=== PATIENT | male | born 1950 | race Caucasian/White ===

== ENCOUNTER 2025-04-11 13:39 | Inpatient (IN) | payer OTHER, MEDICAID ==
[~2025-04-11] VITALS: Ht 165.1 cm; Wt 47.5 kg
--- NOTE | 2025-04-11 13:51 | ECG ---
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
[2025-04-11] MEDS: ALBUTEROL SULF 2.5 MG/0.5ML(0.5%) NEB SOLN NEB ONE (14:11)
[2025-04-11] MEDS: IPRATROPIUM BROM 0.5 MG/2.5ML INH SOL NEB ONE (14:11)
[2025-04-11 14:22] LABS: Hematocrit 34.5 % (41.0-53.0); Hemoglobin 10.8 g/dL (13.5-17.5); Mean Corpuscular Hemoglobin 23.9 pg (28.0-32.0); Mean Corpuscular Volume 76.2 fL (80.0-100.0); Nucleated Red Blood Cells % 0.1 %
[2025-04-11 14:31] LABS: Chloride 99 mmol/L (98-107); Potassium 4.2 mmol/L (3.5-5.1); Sodium 140 mmol/L (136-145)
[2025-04-11 14:32] LABS: Anion Gap 7 (5-15)
[2025-04-11 14:33] LABS: Calcium 8.9 mg/dL (8.7-10.4); Carbon Dioxide 34 mmol/L (20-31)
[2025-04-11 14:37] LABS: Glucose 94 mg/dL (74-106)
[2025-04-11 14:38] LABS: BUN/Creatinine Ratio 29.0 (10.0-20.0)
[2025-04-11 14:44] LABS: Blood Urea Nitrogen 29 mg/dL (9-23)
--- NOTE | 2025-04-11 15:40 | DVH ---
CHEST RADIOGRAPH Indication: sob Technique: Single frontal view of the chest was obtained Comparison: XR CHEST 1 VIEW on DOS: 10/19/24 FINDINGS: Lines and Tubes: None Lungs: Bilateral interstitial and airspace opacities. Pleura: No effusion. No pneumothorax. Cardiomediastinal contours: Unremarkable Bones: No acute osseous abnormality. IMPRESSION: 1. Bilateral interstitial and airspace opacities which may reflect pulmonary congestion or fibrosis.
[2025-04-11 16:00] VITALS: PULSE 82; RESP 16; O2SAT 95
--- NOTE | 2025-04-11 17:03 | ED.PDOC ---
History of Present Illness HPI Comments 74 y/o M presents with c/c of shortness of breath and cough. Patient is a poor historian. Endorses on dyspnea for several 'weeks.' Patient also reports associated nausea, vomiting, diarrhea, fever, and chills. He denies any chest pain, abdominal pain, or further acute symptoms. Chief Complaint: Shortness of Breath Time Seen by MD: 16:50 Reviewed Notes: Nurses Notes, Medications, Allergies Allergies: Coded Allergies: NO KNOWN ALLERGIES (Unverified , 04/11/25) Information Source: Patient Mode of Arrival: Wheelchair Severity: Moderate Timing: Weeks Duration: Since onset Prehospital treatment: None Past Medical History PAST MEDICAL HISTORY: Denies Surgical History: Denies all surgeries Social History Smoker: Non-Smoker Alcohol: Denies ETOH Use Drugs: Denies Drug Use Lives In: Home All Other Systems: Reviewed and Negative (Comprehensive review of systems are negative unless stated in HPI) Physical Exam General Appearance: No Apparent Distress, Normal HEENT: Normal ENT Inspection, Pharynx Normal, TMs Normal Neck: Full Range of Motion, Non-Tender, Normal, Normal Inspection Respiratory: Chest Non-Tender, No Accessory Muscle Use, No Respiratory Distress, Other (nonproductive cough; coarse breathe sounds bilaterally) Cardiovascular: No Edema, No JVD, No Murmur, No Gallop, Normal Peripheral Pulses, Regular Rate/Rhythm Breast Exam: Deferred Gastrointestinal: No Organomegaly, Non Tender, No Pulsatile Mass, Normal Bowel Sounds, Soft Genitalia: Deferred Pelvic: Deferred Rectal: Deferred Extremities: No calf tenderness, Normal capillary refill, Normal inspection, Normal range of motion, Non-tender, No pedal edema Musculoskeletal : Apperance: Normal Neurologic: Alert, veterans services specialist II-XII nml as Tested, No Motor Deficits, Normal Affect, Normal Mood, No Sensory Deficits Cerebellar Function: Normal Reflexes: Normal Skin: Dry, Normal Color, Warm Lymphatic: No Adenopathy Was a procedure done? Was a procedure done?: No EKG EKG : Pulse Rate (adult): 84 [place]: Normal Cardiac Rhythm: NSR Block: None Hypertrophy: None ST: Normal Differential Dx Considerations may include: URI, PNA, PE, VA, among others X-Ray, Labs, Meds, VS Vital Signs Date Time Temp Pulse Resp B/P (MAP) Pulse Ox O2 Delivery O2 Flow Rate FiO2 04/11/25 14:15 18 98 Nasal Cannula* 2 28 04/11/25 13:41 97.5 89 28 106/75 94 97.5 Lab Test 04/11/25 15:09 04/11/25 14:08 Range/Units Troponin I High Sensitivity 4 4 </=54 ng/L White Blood Count 4.9 4.4-10.8 10^3/uL Red Blood Count 4.53 4.5-5.90 10^6/uL Hemoglobin 10.8 L 13.5-17.5 g/dL Hematocrit 34.5 L 41.0-53.0 % Mean Corpuscular Volume 76.2 L 80.0-100.0 fL Mean Corpuscular Hemoglobin 23.9 L 28.0-32.0 pg Mean Corpuscular Hemoglobin Concent 31.4 L 32.0-36.0 g/dL Red Cell Distribution Width 19.6 H 11.8-14.3 % Platelet Count 382 140-450 10^3/uL Mean Platelet Volume 7.5 6.9-10.8 fL Neutrophils (%) (Auto) 60.9 37.0-80.0 % Lymphocytes (%) (Auto) 24.1 10.0-50.0 % Monocytes (%) (Auto) 11.9 0.0-12.0 % Eosinophils (%) (Auto) 2.5 0.0-7.0 % Basophils (%) (Auto) 0.6 0.0-2.0 % Neutrophils # (Auto) 3.0 1.6-8.6 10 ^3/uL Lymphocytes # (Auto) 1.2 0.4-5.4 10 ^3/uL Monocytes # (Auto) 0.6 0-1.3 10 ^3/uL Eosinophils # (Auto) 0.1 0-0.8 10 ^3/uL Basophils # (Auto) 0 0-0.2 10 ^3/uL Nucleated Red Blood Cells 0.1 % Sodium Level 140 136-145 mmol/L Potassium Level 4.2 3.5-5.1 mmol/L Chloride Level 99 98-107 mmol/L Carbon Dioxide Level 34 H 20-31 mmol/L Anion Gap 7 5-15 Blood Urea Nitrogen 29 H 9-23 mg/dL Creatinine 1.00 0.700-1.30 mg/dL Glomerular Filtration Rate Calc 80 >90 mL/min BUN/Creatinine Ratio 29.0 H 10.0-20.0 Serum Glucose 94 74-106 mg/dL Lactic Acid Level 1.4 0.4-2.0 mmol/L Calcium Level 8.9 8.7-10.4 mg/dL B-Type Natriuretic Peptide 71.80 0-100 pg/mL Current Medications Medications (Trade) Dose Ordered Sig/Jerry Route Start Time Stop Time Status Last Admin Albuterol (Ventolin Medneb) 5 mg ONCE ONCE NEB 04/11/25 14:00 04/11/25 14:01 DC 04/11/25 14:11 Ipratropium [place] (Atrovent Medneb) 0.5 mg ONCE ONCE NEB 04/11/25 14:00 04/11/25 14:01 DC 04/11/25 14:11 [place] [id number] Ph: [phone] DIAGNOSTIC IMAGING Diagnostic Imaging Report : [id number] Signed PATIENT: BETTINA SOLER ACCT: [id number] UNIT: [id number] : 1950 LOC: ER ROOM / BED: / AGE / SEX: 74 / M ADM STATUS: REG ER SERVICE 1348 ORDERING PHYSICIAN: MARGO DO MD PROCEDURE(s): CXRP - CHEST PORTABLE REASON: sob ORDER NUMBER(s): [id number], ACCESSION NUMBER(s): [id number] CHEST RADIOGRAPH Indication: sob Technique: Single frontal view of the chest was obtained Comparison: XR CHEST 1 VIEW on DOS: 10/19/24 FINDINGS: Lines and Tubes: None Lungs: Bilateral interstitial and airspace opacities. Pleura: No effusion. No pneumothorax. Cardiomediastinal contours: Unremarkable Bones: No acute osseous abnormality. IMPRESSION: 1. Bilateral interstitial and airspace opacities which may reflect pulmonary congestion or fibrosis. ATED BY: CALOS CHIANG MD DICTATED DATE/TIME: 04/11/251536 SIGNED BY: CALOS CHIANG MD SIGNED DATE/TIME: 04/11/251536 CC: Time of 1ST Reevaluation: 17:20 Reevaluation 1ST: Unchanged Patient Education/Counseling: Diagnosis, Treatment, Other (need for admission ) Family Education/Counseling: No Family Present SEPSIS Sepsis Screen Date sepsis recognized/suspect: Apr 11, 2025 Time Sepsis recognized/suspect: 4 Recent Procedure: No On Antibiotic Therapy: No Respiratory Rate >20: Yes Heart Rate >90: No Temp<36 C (96.8 F) or >38.3 C: No SBP <90 or MAP <65 mmHG: No New Acute Mental Status Change: No Is the patient on CPAP, BIPAP,: No Physician Orders Chest Portable (04/11/25 13:48) Blood Culture (04/11/25 13:48) Troponin-I Hs (04/11/25 16:48) Electrocardigram (04/11/25 14:48) Electrocardigram (04/11/25 16:48) Azithromycin Tablet (Zithromax Tablet) (04/11/25 17:00) Methylprednisolone Sod Succ (Solu Medrol (04/11/25 17:00) Vital Signs Date Time Temp Pulse Resp B/P (MAP) Pulse Ox O2 Delivery O2 Flow Rate FiO2 04/11/25 14:15 18 98 Nasal Cannula* 2 28 04/11/25 13:41 97.5 89 28 106/75 94 97.5 Laboratory Tests Test 04/11/25 14:08 Lactic Acid Level 1.4 mmol/L (0.4-2.0) White Blood Count 4.9 10^3/uL (4.4-10.8) Medications Medications Dose Ordered Sig/Jerry Route Start Time Stop Time Status Last Admin Dose Admin Albuterol 5 mg ONCE ONCE NEB 04/11/25 14:00 04/11/25 14:01 DC 04/11/25 14:11 Ipratropium [place] 0.5 mg ONCE ONCE NEB 04/11/25 14:00 04/11/25 14:01 DC 04/11/25 14:11 Departure 1 Departure Time of Disposition: 17:03 (Patient presented with acute shortness of breath concerning for acute on chronic COPD Exacerbation, Pneumonia, ACS, CHF, Pneumothorax. Less likely PE, Dissection. Data: 1. I ordered and reviewed the result of at least 3 labs including a CBC, BMP, and Troponin. 2. I independently interpreted the following tests: Chest X-ray shows .Risk:This patient has a high risk of morbidity due to further diagnostic testing or treatment and may suffer from respiratory or cardiac etiology . Workup reveals a likely COPD Exacerbation and patient should be admitted for further workup. and possible expert consultation.) Impression: Primary Impression: Acute and chronic respiratory failure Additional Impressions: Shortness of breath Generalized weakness Disposition: ADMITTED INPATIENT Admit to: Tele Condition: Serious Critical Care Note Critical Care Time?: Yes Critical care comment: Acute on chronic respiratory failure Authorized and Performed by: Margo Do MD Total critical care time: Approximately 39 minutes Due to a high probability of clinically significant, life threatening deterioration, the patient required my highest level of preparedness to intervene emergently and I personally spent this critical care time directly and personally managing the patient. This critical care time included obtaining a history; examining the patient; pulse oximetry; ordering and review of studies; arranging urgent treatment with development of a management plan; evaluation of patient's response to treatment; frequent reassessment; and, discussions with other providers. This critical care time was performed to assess and manage the high probability of imminent, life-threatening deterioration that could result in multi-organ failure. It was exclusive of separately billable procedures and treating other patients and teaching time. Please see my other sections and the rest of the note for further information on patient assessment and treatment. Stability Stability form required: No Heart Score Heart Score: Heart Score Response (Comments) Value History Moderate Suspicious 1 EKG Normal 0 Age >65 2 Risk Factors No known risk factors 0 Troponin Normal limit 0 Total 3 I personally scribed for MARGO DO MD ([email or web address]) on 04/11/25 at 17:03. Electronically submitted by Carroll Vicente [email or web address]). MARGO DO MD Apr 11, 2025 17:03
[2025-04-11] MEDS: AZITHROMYCIN 250 MG TAB PO ONE (19:09)
[2025-04-11] MEDS: methylPREDNISolone SOD SUCC 125 MG/2 ML VL IV ONE (19:11)
[2025-04-11 19:46] VITALS: PULSE 72; RESP 14; O2SAT 99
[2025-04-11 20:16] VITALS: O2SAT 97
[2025-04-11] MEDS ORDERED: DOCUSATE SOD 100 MG CAP PO PRN (20:45)
[2025-04-11] MEDS ORDERED: ONDANSETRON HCL 4 MG/2 ML VIAL IV PRN (20:45)
[2025-04-11] MEDS ORDERED: ACETAMINOPHEN 325 MG TAB PO PRN (20:45)
[2025-04-11 20:48] VITALS: BP 103/71; PULSE 72; RESP 14; TEMP 97.9; O2SAT 99
[2025-04-11] MEDS: methylPREDNISolone SOD SUCC 40 MG/ML VL IV SCH (21:34)
[2025-04-11] MEDS: SODIUM CHLOR 0.9% PF (SALINE LOCK) 10ML VIAL/SYR IV SCH (21:34)
[2025-04-11] MEDS: FAMOTIDINE (10MG/ML) 2ML VL IV SCH (21:34)
--- NOTE | 2025-04-11 22:09 | DVHHP2 ---
History of Present Illness Reason for Visit: Acute and chronic respiratory failure History of Present Illness The patient is a 74-year-old male who denies past medical history presented to [facility] ED with complaint of shortness of breaths. Patient reports that he has been experiencing difficulty breathing associated with cough, nausea, vomiting, diarrhea, fever, chills, and dyspnea for several weeks. Patient was seen and evaluated in the ED, laboratory data shows WBC 4.9, hemoglobin 10.8, hematocrit 34.5, platelets 382, sodium 140, potassium 4.2, BUN 29, creatinine 1.00, GFR 80, glucose 94, calcium 8.9, BNP 71.80, troponin 5, lactic acid 1.4, blood pressure 104/70, heart rate 72, temperature 97.9 F, O2 saturation 99% on oxygen. Chest x-ray revealing bilateral interstitial and airspace opacity which may reflect pulmonary congestion or fibrosis. Please see medication orders section in the computer. On my assessment, patient denied chest pain, no dizziness, headache, diaphoresis, no diarrhea, nausea, vomiting, fever, no chills. Patient was admitted for further evaluation and medical management. Past Medical History Denies past medical history Past Surgical History Denies all surgeries Family History Reviewed, noncontributory to the management of this case. Past Social History The patient lives at home, denies smoking, alcohol or illicit drugs abuse. Review of Systems Constitutional: Yes: Weakness; No: Fever, Chills, Sweats, Malaise, Other Eyes: No: Pain, Vision change, Conjunctivae inflammation, Eyelid inflammation, Other, Redness ENT: No: Ear pain, Ear discharge, Nose pain, Nose discharge, Nose congestion, Mouth pain, Mouth swelling, Throat pain, Throat swelling, Other Respiratory: Cough, Shortness of breath; No: Dry, SOB with excertion, Wheezing, Hemoptysis, Pleuritic Pain, Sputum, Wheezing, Other Cardiovascular: No: Chest Pain, Palpitations, Orthopnea, Paroxysmal Noc. Dyspnea, Edema, Lt Headedness, Other Gastrointestinal: Nausea, Vomiting; No: Abdominal Pain, Diarrhea, Constipation, Melena, Hematochezia, Other Genitourinary: No Dysuria, No Frequency, No Incontinence, No Hematuria, No Retention, No Other Musculoskeletal: No: other, neck pain, shoulder pain, arm pain, back pain, hand pain, leg pain, foot pain Skin: No: Rash, Lesions, Jaundice, Bruising, Other Neurological: No: Weakness, Numbness, Incoordination, Change in speech, Confusion, Seizures, Other Allergies: Coded Allergies: NO KNOWN ALLERGIES (Unverified , 04/11/25) Medications Current Medications Medications Dose Ordered Sig/Jerry Route Start Time Stop Time Status Last Admin Dose Admin Albuterol 2.5 mg Q4HPRN PRN NEB 04/11/25 20:45 Ipratropium [place] 0.5 mg Q4HPRN PRN NEB 04/11/25 20:45 Famotidine 20 mg Q12HR IV 04/11/25 22:00 04/11/25 21:34 20 MG Methylprednisolone Sodium Succinate 20 mg BID IV 04/11/25 22:00 04/11/25 21:34 20 MG Sodium Chloride 10 ml Q8HR IV 04/11/25 22:00 04/11/25 21:34 10 ML Acetaminophen/ Hydrocodone Bitart 1 tab Q4HP PRN PO 04/11/25 20:45 Ondansetron HCl 4 mg Q4HP PRN IV 04/11/25 20:45 Docusate Sodium 100 mg BIDPRN PRN PO 04/11/25 20:45 Acetaminophen 650 mg Q6HP PRN PO 04/11/25 20:45 Exam Vital Signs Vital Signs Date Time Temp Pulse Resp B/P (MAP) Pulse Ox O2 Delivery O2 Flow Rate FiO2 04/11/25 20:48 97.9 72 14 103/71 99 0.0 21 97.9 04/11/25 20:16 Room Air* General Appearance: Alert, Oriented X3, Cooperative, No acute distress HEENT: Atraumatic, PERRLA, EOMI, Mucous membr. moist/pink Respiratory: Normal air movement Cardiovascular: Regular rate, Normal S1, Normal S2, No murmurs Abdominal: Normal bowel sounds, Soft, No tenderness, No hepatospenomegaly, No masses Extremities: No clubbing, No cyanosis, No edema, Normal pulses, No tenderness/swelling Skin: No rashes, No significant lesion Neuro: Normal speech, Normal tone, Sensation intact, Cranial nerves 3-12 NL, Reflexes 2+, Other (Generalized weakness) Psych/Mental Status: Mental status NL, Mood NL Labs/Xrays Labs Test 04/11/25 17:06 04/11/25 14:08 Range/Units Troponin I High Sensitivity 5 </=54 ng/L White Blood Count 4.9 4.4-10.8 10^3/uL Red Blood Count 4.53 4.5-5.90 10^6/uL Hemoglobin 10.8 L 13.5-17.5 g/dL Hematocrit 34.5 L 41.0-53.0 % Mean Corpuscular Volume 76.2 L 80.0-100.0 fL Mean Corpuscular Hemoglobin 23.9 L 28.0-32.0 pg Mean Corpuscular Hemoglobin Concent 31.4 L 32.0-36.0 g/dL Red Cell Distribution Width 19.6 H 11.8-14.3 % Platelet Count 382 140-450 10^3/uL Mean Platelet Volume 7.5 6.9-10.8 fL Neutrophils (%) (Auto) 60.9 37.0-80.0 % Lymphocytes (%) (Auto) 24.1 10.0-50.0 % Monocytes (%) (Auto) 11.9 0.0-12.0 % Eosinophils (%) (Auto) 2.5 0.0-7.0 % Basophils (%) (Auto) 0.6 0.0-2.0 % Neutrophils # (Auto) 3.0 1.6-8.6 10 ^3/uL Lymphocytes # (Auto) 1.2 0.4-5.4 10 ^3/uL Monocytes # (Auto) 0.6 0-1.3 10 ^3/uL Eosinophils # (Auto) 0.1 0-0.8 10 ^3/uL Basophils # (Auto) 0 0-0.2 10 ^3/uL Nucleated Red Blood Cells 0.1 % Sodium Level 140 136-145 mmol/L Potassium Level 4.2 3.5-5.1 mmol/L Chloride Level 99 98-107 mmol/L Carbon Dioxide Level 34 H 20-31 mmol/L Anion Gap 7 5-15 Blood Urea Nitrogen 29 H 9-23 mg/dL Creatinine 1.00 0.700-1.30 mg/dL Glomerular Filtration Rate Calc 80 >90 mL/min BUN/Creatinine Ratio 29.0 H 10.0-20.0 Serum Glucose 94 74-106 mg/dL Lactic Acid Level 1.4 0.4-2.0 mmol/L Calcium Level 8.9 8.7-10.4 mg/dL B-Type Natriuretic Peptide 71.80 0-100 pg/mL PATIENT: BETTINA SOLER ACCT: [id number] UNIT: [id number] : 1950 LOC: ER ROOM / BED: / AGE / SEX: 74 / M ADM STATUS: REG ER SERVICE 1348 ORDERING PHYSICIAN: MARGO MARTÍNEZ MD PROCEDURE(s): CXRP - CHEST PORTABLE REASON: sob ORDER NUMBER(s): [id number], ACCESSION NUMBER(s): [id number] CHEST RADIOGRAPH Indication: sob Technique: Single frontal view of the chest was obtained Comparison: XR CHEST 1 VIEW on DOS: 10/19/24 FINDINGS: Lines and Tubes: None Lungs: Bilateral interstitial and airspace opacities. Pleura: No effusion. No pneumothorax. Cardiomediastinal contours: Unremarkable Bones: No acute osseous abnormality. IMPRESSION: 1. Bilateral interstitial and airspace opacities which may reflect pulmonary congestion or fibrosis. SEPSIS Sepsis Screen Date sepsis recognized/suspect: Apr 11, 2025 Time Sepsis recognized/suspect: 1945 Recent Procedure: No On Antibiotic Therapy: Yes Respiratory Rate >20: No Heart Rate >90: No Temp<36 C (96.8 F) or >38.3 C: No SBP <90 or MAP <65 mmHG: No New Acute Mental Status Change: No Is the patient on CPAP, BIPAP,: No Physician Orders Albuterol Medneb (Ventolin Medneb) (04/11/25 20:45) Ipratropium Medneb (Atrovent Medneb) (04/11/25 20:45) Famotidine Injection (Pepcid Injection) (04/11/25 22:00) Methylprednisolone Sod Succ (Solu Medrol (04/11/25 22:00) Allergies (04/11/25 20:33) Code Status (04/11/25 20:33) Sodium Chloride Lock (Saline Lock Ns) (04/11/25 22:00) Oxygen Per Hour (04/11/25 20:33) Hydrocodone-Acet 5/325mg Tab ([place] 5/32 (04/11/25 20:45) Ondansetron Hcl (Zofran) (04/11/25 20:45) Docusate Sodium Capsule (Colace Capsule) (04/11/25 20:45) Fall Risk Precautions In Place QSHIFT (04/11/25 20:33) Complete Blood Count (04/12/25 04:00) Comprehensive Metabolic Panel (04/12/25 04:00) Cardiac Diet-2gna,Lofat,Lochol (04/12/25 Breakfast) Condition: Serious (04/11/25 20:33) Acetaminophen Tablet (Tylenol Tablet) (04/11/25 20:45) Maintain Bed Rest (04/11/25 20:33) Sequential Compression Device (04/11/25 ) Vital Signs Date Time Temp Pulse Resp B/P (MAP) Pulse Ox O2 Delivery O2 Flow Rate FiO2 04/11/25 20:48 97.9 72 14 103/71 99 0.0 21 97.9 04/11/25 20:16 97 Room Air* 0 21 04/11/25 20:16 97 Room Air 04/11/25 19:46 72 14 99 Room Air* 0 21 04/11/25 19:30 97.9 72 14 103/71 (82) 99 97.9 04/11/25 18:35 98.3 82 16 101/65 (77) 95 98.3 04/11/25 17:03 84 04/11/25 17:00 71 1 107/64 (78) 99 04/11/25 16:00 82 16 95 Room Air* 0 21 04/11/25 15:00 74 14 115/69 (84) 100 04/11/25 14:15 18 98 Nasal Cannula* 2 28 Laboratory Tests Test 04/11/25 14:08 Lactic Acid Level 1.4 mmol/L (0.4-2.0) White Blood Count 4.9 10^3/uL (4.4-10.8) Medications Medications Dose Ordered Sig/Jerry Route Start Time Stop Time Status Last Admin Dose Admin Albuterol 5 mg ONCE ONCE NEB 04/11/25 14:00 04/11/25 14:01 DC 04/11/25 14:11 5 MG Azithromycin 500 mg ONCE ONCE PO 04/11/25 17:00 04/11/25 17:34 DC 04/11/25 19:09 500 MG Famotidine 20 mg Q12HR IV 04/11/25 22:00 04/11/25 21:34 20 MG Ipratropium [place] 0.5 mg ONCE ONCE NEB 04/11/25 14:00 04/11/25 14:01 DC 04/11/25 14:11 0.5 MG Methylprednisolone Sodium Succinate 20 mg BID IV 04/11/25 22:00 04/11/25 21:34 20 MG Methylprednisolone Sodium Succinate 62.5 mg ONCE ONCE IV 04/11/25 17:00 04/11/25 17:34 DC 04/11/25 19:11 62.5 MG Sodium Chloride 10 ml Q8HR IV 04/11/25 22:00 04/11/25 21:34 10 ML Assessment/Plan Assessment/Plan Acute and chronic respiratory failure Anemia, unspecified Generalized weakness Plan 1. Admit to telemetry unit 2. Breathing treatment 3. Pain control management 4. Management of fluids and electrolytes 5. Consultation for hospitalist 6. Diagnostic tests chest x-ray 7. DVT prophylaxis-on SCDs 8. Repeat labs CBC, CMP in a.m. 9. Continue with current medical management 10. Treatment plan discussed with patient and RN. Patient verbalized understanding. Plan discussed with: Patient, Other (RN) My Orders Orders - TISH SIMS DNP Procedure Category Date Status Time Albuterol Medneb PHA 04/11/25 In Process (Ventolin Medneb) 20:45 Ipratropium Medneb PHA 04/11/25 In Process (Atrovent Medneb) 20:45 Famotidine Injection PHA 04/11/25 In Process (Pepcid Injection) 22:00 Methylprednisolone PHA 04/11/25 In Process Sod Succ (Solu Medrol 22:00 Allergies MARISA 04/11/25 In Process 20:33 Code Status CODE 04/11/25 Transmitted 20:33 Sodium Chloride Lock PHA 04/11/25 In Process (Saline Lock Ns) 22:00 Oxygen Per Hour RT 04/11/25 Transmitted 20:33 Hydrocodone-Acet PHA 04/11/25 In Process 5/325mg Tab ([place] 20:45 Ondansetron Hcl PHA 04/11/25 In Process (Zofran) 20:45 Docusate Sodium PHA 04/11/25 In Process Capsule (Colace 20:45 Fall Risk Precautions MARISA 04/11/[address] 20:33 Complete Blood Count LAB 04/12/25 Verified 04:00 Comprehensive LAB 04/12/25 Verified Metabolic Panel 04:00 Cardiac DIET 04/12/25 Transmitted Diet-2gna,Lofat,Lochol Breakfast Condition: Serious MARISA 04/11/25 In Process 20:33 Acetaminophen Tablet PHA 04/11/25 In Process (Tylenol Tablet) 20:45 Maintain Bed Rest MARISA 04/11/25 In Process 20:33 Sequential MARISA 04/11/25 In Process Compression Device Problem List: (1) Acute and chronic respiratory failure (2) Anemia, unspecified (3) Generalized weakness Date of Service: Apr 11, 2025 Billing Provider: TISH SIMS DNP Common Visit Codes: [id number] INP/OBS CARE (HIGH) TISH SIMS DNP Apr 11, 2025 22:09
[2025-04-11] MEDS ORDERED: NITROGLYCERIN 0.4 MG SL TAB SL PRN (22:15)
[2025-04-11] MEDS ORDERED: MORPHINE SULFATE INJ 2 MG/ml SYRG IV PRN (22:15)
[2025-04-12] VITALS (12 sets, daily range): BP systolic 106–116; BP diastolic 68–79; PULSE 71–84; RESP 17–20; TEMP 97.5–98.7; O2SAT 95–99
[2025-04-12] MEDS: HYDROcodone-ACET 5/325MG TAB PO PRN (01:34)
[2025-04-12 07:01] LABS: Hematocrit 31.1 % (41.0-53.0); Hemoglobin 9.6 g/dL (13.5-17.5)
[2025-04-12 07:03] LABS: Mean Corpuscular Hemoglobin 23.6 pg (28.0-32.0); Mean Corpuscular Volume 76.3 fL (80.0-100.0); Nucleated Red Blood Cells % 0.0 %
[2025-04-12 07:27] LABS: Alanine Aminotransferase 25 U/L (7-40); Albumin 3.2 g/dL (3.2-4.8); Alkaline Phosphatase 62 U/L (46-116); Anion Gap 8 (5-15); BUN/Creatinine Ratio 29.2 (10.0-20.0); Carbon Dioxide 28 mmol/L (20-31); Chloride 102 mmol/L (98-107); Potassium 4.5 mmol/L (3.5-5.1); Sodium 138 mmol/L (136-145); Total Protein 6.7 g/dL (5.7-8.2)
[2025-04-12 07:31] LABS: Bilirubin, Total 0.2 mg/dL (0.2-1.0); Blood Urea Nitrogen 28 mg/dL (9-23); Calcium 8.7 mg/dL (8.7-10.4); Glucose 117 mg/dL (74-106)
[2025-04-12 13:17] LABS: Hepatitis B Surface Antigen Negative (Negative)
[2025-04-12 13:20] LABS: Hepatitis C Antibody Reactive (Negative)
--- NOTE | 2025-04-12 13:56 | DVHPN2 ---
Subjective C/O SHORTNESS of breath with minimal exertion/no chest pain/states was in [facility] last week and told ? pneumonia//has lost > 20#/no other complaints Changes from previous H/P or p: No Changes Eyes: No Pain, No Vision change, No Conjunctivae inflammation, No Eyelid inflammation, No Other, No Redness ENT: No Ear pain, No Ear discharge, No Nose pain, No Nose discharge, No Nose congestion, No Mouth pain, No Mouth swelling, No Throat pain, No Throat swelling, No Other Cardiovascular: No Chest Pain, No Palpitations, No Orthopnea, No Paroxysmal Noc. Dyspnea, No Edema, No Lt Headedness, No Other Respiratory: Cough; No Dry; Shortness of breath; No SOB with excertion, No Wheezing, No Hemoptysis, No Pleuritic Pain, No Sputum, No Other Gastrointestinal: Nausea, Vomiting; No Abdominal Pain, No Diarrhea, No Constipation, No Melena, No Hematochezia, No Other Genitourinary: No Dysuria, No Frequency, No Incontinence, No Hematuria, No Retention, No Other Musculoskeletal: No other, No neck pain, No shoulder pain, No arm pain, No back pain, No hand pain, No leg pain, No foot pain Skin: No Rash, No Lesions, No Jaundice, No Bruising, No Other Objective Vitals Vital Signs Date Time Temp Pulse Resp B/P (MAP) Pulse Ox O2 Delivery O2 Flow Rate FiO2 04/12/25 10:00 97 Room Air* 0 21 04/12/25 09:00 97.9 76 18 116/75 (89) 97.9 Intake/Output Intake and Output 04/12/25 07:00 Intake Total 640 ml Output Total 225 ml Balance 415 ml Intake Oral 640 ml Output Urine Total 225 ml General Appearance: Alert, Oriented X3, No acute distress Lungs: Clear to auscultation Cardiovascular: Regular rate, Normal S1, Normal S2 Abdomen: Normal bowel sounds, Soft, No tenderness, No hepatospenomegaly Neuro: Normal gait, Normal speech, Strength at 5/5 X4 ext, Normal tone, S ensation intact, Cranial nerves 3-12 NL Psych/Mental Status: Mental status NL, Mood NL Medications Current Medications Medications Dose Ordered Sig/Jerry Route Start Time Stop Time Status Last Admin Dose Admin Albuterol 2.5 mg Q4HPRN PRN NEB 04/11/25 20:45 Ipratropium [place] 0.5 mg Q4HPRN PRN NEB 04/11/25 20:45 Famotidine 20 mg Q12HR IV 04/11/25 22:00 04/12/25 09:39 20 MG Methylprednisolone Sodium Succinate 20 mg BID IV 04/11/25 22:00 04/12/25 09:39 20 MG Sodium Chloride 10 ml Q8HR IV 04/11/25 22:00 04/12/25 06:16 10 ML Acetaminophen/ Hydrocodone Bitart 1 tab Q4HP PRN PO 04/11/25 20:45 04/12/25 01:34 1 TAB Docusate Sodium 100 mg BIDPRN PRN PO 04/11/25 20:45 Acetaminophen 650 mg Q6HP PRN PO 04/11/25 20:45 Levofloxacin 50 ml @ 50 mls/hr DAILY IV 04/13/25 10:00 Laboratory Results Laboratory Tests 04/12/25 06:04 Chemistry Test 04/11/25 14:08 04/12/25 06:04 Calcium Level 8.9 mg/dL (8.7-10.4) 8.7 mg/dL (8.7-10.4) Albumin 3.2 g/dL (3.2-4.8) Total Protein 6.7 g/dL (5.7-8.2) Cardiac Markers Test 04/11/25 14:08 B-Type Natriuretic Peptide 71.80 pg/mL (0-100) LFT Test 04/12/25 06:04 Alanine Aminotransferase (ALT) 25 U/L (7-40) Alkaline Phosphatase 62 U/L (46-116) Aspartate Amino Transferase (AST) 27 U/L (13-40) Total Bilirubin 0.2 mg/dL (0.2-1.0) Assessment/Plan Assessment/Plan acute on chronic respiratory failure- pulse ox is good/looks more of restrivtive lung disese- states bed bound check cta- r/o pe vs pulmonary fibrosis hepatitic c -chronic anemia- no signs of active bleeding/monitor dvt prophylaxis physical therapy Plan discussed with: Patient, Other My Orders Orders - KATHIE MURDOCK MD Procedure Category Date Status Time Echo 2d Mode Cardiac US 04/12/25 Logged DOP 12:33 Levofloxacin 250mg PHA 04/13/25 In Process (Levaquin 250mg) 10:[address] 04/12/25 Logged Contrast 13:49 Date of Service: Apr 12, 2025 Billing Provider: KATHIE MURDOCK MD Common Visit Codes: [id number] INP/OBS CARE(MOD) KATHIE MURDOCK MD Apr 12, 2025 13:56
[2025-04-12] MEDS ORDERED: IOHEXOL 350 MG/ML 100ML IJ ONE (14:14)
[2025-04-12] MEDS: ENOXAPARIN SOD 40 MG/0.4 ML SYRINGE SC ONE (15:01)
[2025-04-13] VITALS (15 sets, daily range): BP systolic 96–122; BP diastolic 64–81; PULSE 67–86; RESP 14–22; TEMP 97.2–98.2; O2SAT 92–100
[2025-04-13 06:37] LABS: Mean Corpuscular Volume 76.9 fL (80.0-100.0)
[2025-04-13 06:41] LABS: Hematocrit 28.8 % (41.0-53.0); Hemoglobin 8.9 g/dL (13.5-17.5); Mean Corpuscular Hemoglobin 23.9 pg (28.0-32.0); Nucleated Red Blood Cells % 0.1 %
--- NOTE | 2025-04-13 08:39 | DVHSR ---
APPROVED REPORT EXAM: LIMITED Two-dimensional and M-mode echocardiogram. Blood Pressure: 116/75 mmHg INDICATION Dyspnea RISK FACTORS Height: 5'5", Weight: 88 Mitral Valve Mitral Mitral Stenosis E/A ratio 0.0 2D MVA cm2 Other Information Quality : Technically Limited Rhythm : Technically limited study due to Very limited views, unable to obtain parasternal and apical views due to body habitus. Patient very short of breath. Conclusion only subcostal images done no pericardial effusion noted lvef is >40% cannot be more accurate vavles not assessed normal RV size
[2025-04-13] MEDS ORDERED: IOHEXOL 350 MG/ML 100ML IJ ONE (09:50)
[2025-04-13] MEDS: ALBUTEROL SULF 2.5 MG/0.5ML(0.5%) NEB SOLN NEB PRN (10:03)
[2025-04-13] MEDS: IPRATROPIUM BROM 0.5 MG/2.5ML INH SOL NEB PRN (10:03)
[2025-04-13] MEDS: ENOXAPARIN SOD 40 MG/0.4 ML SYRINGE SC SCH (10:29)
--- NOTE | 2025-04-13 13:08 | DVH ---
CTA Chest with intravenous contrast INDICATION: CHRONIC DYSPNEA COMPARISON: XY CHEST PORTABLE on DOS: 04/11/25 TECHNIQUE: Multidetector spiral CTA of the chest was performed of the chest with cc of intravenous contrast. PULMONARY ANGIOGRAPHY PROTOCOL was utilized using a bolus-tracking technique centered on the main pulmonary artery. Coronal and sagittal multiplanar and MIP reformats were performed. Radiation Dose : 1. Chest: CTDI volume is 10.6 mGy. Dose-length product is 318.8 mGy*cm The dose indicators for CT are the volume Computed Tomography (CT) Dose Index (CTDIvol) and the Dose Length Product (DLP), and are measured in units of mGy and mGy-cm, respectively. These indicators are not patient dose, but values generated from the CT scanner acquisition factors. The report includes radiation exposure data for exposures received during this examination. FINDINGS: Pulmonary artery: No central or lobar pulmonary embolism. The segmental branches are not well evaluated due to heterogeneous enhancement. Lower neck: Normal thyroid. Lungs: Severe centrilobular emphysema. There is honeycombing in the bilateral lower lobes consistent with fibrosis. Interlobular septal thickening with more nodular thickening along the major fissures. Bilateral bronchiectasis. Central airways: Patent. Pleura: No pneumothorax. No pleural effusions. Heart/Vascular Structures: The heart is normal in size. No pericardial effusion. Thoracic aorta is normal in caliber. No aneurysm or dissection. Lymph Nodes: No mediastinal or hilar lymphadenopathy. Esophagus: Patulous esophagus. Hiatal hernia. Musculoskeletal: There is a subacute sternal fracture. Body wall: Diffuse soft tissue thickening in the anterior and lateral chest mccloud. Innumerable calcifications throughout subcutaneous tissues of the chest. Upper abdomen: Unremarkable. IMPRESSION: 1. No evidence of central or lobar pulmonary embolism. Segmental branches not evaluated due to suboptimal enhancement. 2. Severe centrilobular emphysema. Fibrosis in the lower lungs. 3. Interlobular septal thickening with more nodular thickening along the major fissures. Differential considerations include but are not limited to: asbestos related lung disease or Lymphangitic carcinomatosis. 4. Subacute sternal fracture. 5. Diffuse soft tissue thickening in the anterior and lateral chest mccloud. Correlation for malignancy recommended. 6. Innumerable calcifications throughout subcutaneous tissues of the chest. 7. Patulous esophagus. Hiatal hernia.
--- NOTE | 2025-04-13 16:00 | DVHPN2 ---
Subjective Patient continues to report having shortness of breath Reviewed: Care Plan, H&P, Labs, Medications, Previous Orders Changes from previous H/P or p: No Changes General: Per HPI Eyes: No Pain, No Vision change, No Conjunctivae inflammation, No Eyelid inflammation, No Other, No Redness ENT: No Ear pain, No Ear discharge, No Nose pain, No Nose discharge, No Nose congestion, No Mouth pain, No Mouth swelling, No Throat pain, No Throat swelling, No Other Cardiovascular: No Chest Pain, No Palpitations, No Orthopnea, No Paroxysmal Noc. Dyspnea, No Edema, No Lt Headedness, No Other Respiratory: Cough; No Dry; Shortness of breath; No SOB with excertion, No Wheezing, No Hemoptysis, No Pleuritic Pain, No Sputum, No Other Gastrointestinal: Nausea, Vomiting; No Abdominal Pain, No Diarrhea, No Constipation, No Melena, No Hematochezia, No Other Genitourinary: No Dysuria, No Frequency, No Incontinence, No Hematuria, No Retention, No Other Musculoskeletal: No other, No neck pain, No shoulder pain, No arm pain, No back pain, No hand pain, No leg pain, No foot pain Skin: No Rash, No Lesions, No Jaundice, No Bruising, No Other Objective Vitals Vital Signs Date Time Temp Pulse Resp B/P (MAP) Pulse Ox O2 Delivery O2 Flow Rate FiO2 04/13/25 13:00 98.2 70 19 112/79 (90) 96 98.2 04/13/25 10:03 Room Air 0.0 04/13/25 10:03 21 Intake/Output Intake and Output 04/13/25 07:00 Intake Total 820 ml Output Total 2050 ml Balance -1230 ml Intake Oral 820 ml Output Urine Total 2050 ml # Voids 2 General Appearance: Alert, Oriented X3, No acute distress HEENT: Atraumatic, PERRLA Lungs: Clear to auscultation, Other (Decreased breath sounds bilateral) Cardiovascular: Regular rate, Normal S1, Normal S2 Abdomen: Normal bowel sounds, Soft, No tenderness, No hepatospenomegaly Neuro: Normal gait, Normal speech, Strength at 5/5 X4 ext, Normal tone, S ensation intact, Cranial nerves 3-12 NL Skin: Dry, Intact Psych/Mental Status: Mental status NL, Mood NL Medications Current Medications Medications Dose Ordered Sig/Jerry Route Start Time Stop Time Status Last Admin Dose Admin Albuterol 2.5 mg Q4HPRN PRN NEB 04/11/25 20:45 04/13/25 10:03 2.5 MG Ipratropium [place] 0.5 mg Q4HPRN PRN NEB 04/11/25 20:45 04/13/25 10:03 0.5 MG Famotidine 20 mg Q12HR IV 04/11/25 22:00 04/13/25 10:29 20 MG Methylprednisolone Sodium Succinate 20 mg BID IV 04/11/25 22:00 04/13/25 10:29 20 MG Sodium Chloride 10 ml Q8HR IV 04/11/25 22:00 04/13/25 13:56 10 ML Acetaminophen/ Hydrocodone Bitart 1 tab Q4HP PRN PO 04/11/25 20:45 04/12/25 20:34 1 TAB Docusate Sodium 100 mg BIDPRN PRN PO 04/11/25 20:45 Acetaminophen 650 mg Q6HP PRN PO 04/11/25 20:45 Levofloxacin 50 ml @ 50 mls/hr DAILY IV 04/13/25 10:00 04/13/25 10:30 50 MLS/HR Enoxaparin Sodium 40 mg DAILY SC 04/13/25 10:00 04/13/25 10:29 40 MG Laboratory Results Laboratory Tests 04/12/25 06:04 04/13/25 05:36 Microbiology Microbiology Date/Time Source Procedure Growth Status 04/12/25 00:40 Nose MRSA Screen - Final Complete 04/11/25 14:08 Blood Blood Culture - Preliminary NO GROWTH AFTER 48 HOURS OF INCUBATION. Resulted Labs and/or images reviewed: Labs reviewed by me, Image(s) reviewed by me Assessment/Plan Assessment/Plan Impression: -acute hypoxic respiratory failure -ruled out pulmonary embolism -pulmonary fibrosis -rule out lung CA -microcytic, hypochromic anemia Plan: -pulmonology consultation -bronchodilators q.6 hours -add Pulmicort -continue Solu-Medrol -check LDH -further course of care per Pulmonary recommendations Total time spent with patient discussing and formulating plan of care: 35 minutes. This medical document was created using an electronic medical record system with [employer] dictation system. Although this document has been carefully reviewed, there may still be some phonetic and typographical errors. These areas are purely typographical due to imperfections of the software programs, and do not reflect any compromise in the patient's medical care. Plan discussed with: Patient, Other (RN) My Orders Orders - JOSUE OTOOLE NP Procedure Category Date Status Time Lactate Dehydrogenase LAB 04/13/25 Verified 15:54 Albuterol Medneb PHA 04/13/25 Verified (Ventolin Medneb) 18:00 Ipratropium Medneb PHA 04/13/25 Verified (Atrovent Medneb) 18:00 Budesonide PHA 04/13/25 Verified (Inhalation) 22:00 *Consult CONS 04/13/25 Verified 15:54 Date of Service: Apr 13, 2025 Billing Provider: JOSUE OTOOLE NP Common Visit Codes: [id number] INP/OBS CARE(HIGH) JOSUE OTOOLE NP Apr 13, 2025 16:00
[2025-04-13] MEDS: IPRATROPIUM BROM 0.5 MG/2.5ML INH SOL NEB SCH (19:24)
[2025-04-13] MEDS: BUDESONIDE (INHALATION) 0.5 MG/2 ML NEB NEB SCH (19:25)
[2025-04-13] MEDS: ALBUTEROL SULF 2.5 MG/0.5ML(0.5%) NEB SOLN NEB SCH (19:25)
--- NOTE | 2025-04-13 23:31 | DVHINCON2 ---
Date of service: Apr 13, 2025 Referring Physician LUPE Moseley Reason for Consultation Acute hypoxic respiratory failure, emphysema and pulmonary fibrosis. History of Present Illness The patient is a 74-year-old male who denies past medical history, presented to ED on 04/11/25 with complaint of shortness of breath. Patient reported experiencing difficulty breathing associated with cough, nausea, vomiting, diarrhea, fever, chills, and dyspnea for several weeks. Patient was seen and evaluated in the ED. Laboratory workup shows WBC 4.9, hemoglobin 10.8, hematocrit 34.5, platelets 382, sodium 140, potassium 4.2, BUN 29, creatinine 1.00, GFR 80, glucose 94, calcium 8.9, BNP 71.80, troponin 5, lactic acid 1.4. Vitals showed blood pressure 104/70, heart rate 72, temperature 97.9 F, O2 saturation 99% on oxygen. Chest x-ray revealing bilateral interstitial and airspace opacity which may reflect pulmonary congestion or fibrosis. Patient was admitted for further care. Pulmonary consultation is requested for evaluation and management of acute hypoxic respiratory failure, emphysema and pulmonary fibrosis. Review of Systems: 14-point review of systems negative unless otherwise noted above. Past Medical History: Denies Past Surgical History: Denies Medications: Reviewed. Allergies: No known drug allergies. Family History: No family history of premature CAD. No family history of lung disorders. Social History: Nonsmoker. No alcohol or illicit drug use. Family History: Patient reports no known family medical history. Allergies: Coded Allergies: NO KNOWN ALLERGIES (Unverified , 04/11/25) Current Medications Current Medications Medications (Trade) Dose Ordered Sig/Jerry Route PRN Reason Start Time Stop Time Status Last Admin Levofloxacin 50 ml @ 50 mls/hr DAILY IV 04/13/25 10:00 04/13/25 10:30 Enoxaparin Sodium (Lovenox) 40 mg DAILY SC 04/13/25 10:00 04/13/25 10:29 Albuterol (Ventolin Medneb) 2.5 mg Q6HWA NEB 04/13/25 18:00 04/13/25 19:25 Ipratropium [place] (Atrovent Medneb) 0.5 mg Q6HWA NEB 04/13/25 18:00 04/13/25 19:24 Budesonide (Pulmicort) 0.5 mg BID [facility] 04/13/25 22:00 04/13/25 19:25 Vital Signs Vital Signs Date Time Temp Pulse Resp B/P (MAP) Pulse Ox O2 Delivery O2 Flow Rate FiO2 04/13/25 20:56 98.0 77 18 108/69 (82) 96 98.0 04/13/25 20:00 Room Air* 0 21 Physical Exam Gen.: Patient lying in bed in no apparent distress. Breathing on room air. Head: Normocephalic, atraumatic. Eyes: EOMI/PERRLA. Ears: Normal hearing. Normal anatomy. Neck/trachea: Trachea midline, supple. Nose: Normal external anatomy. Mouth: Moist mucous membranes. Chest: Decreased air entry bilaterally. No wheezing or rhonchi. Cardiovascular: Positive S1, positive S2. Regular rate and rhythm. Abdomen: Positive bowel sounds in all 4 quadrants. Soft, non-tender, non- distended. : Deferred. Rectal: Deferred. Skin: Warm, dry. Intact. Extremities: 2+ radial pulses bilaterally. No lower extremity edema. Neuro: Awake, alert, oriented x3. No gross motor or sensory deficits. Cranial nerves II through XII intact. Gait not assessed. Labs/Diagnostic Data Labs Test 04/13/25 05:36 04/12/25 06:04 04/11/25 17:06 04/11/25 14:08 Range/Units White Blood Count 11.0 #H 4.4-10.8 10^3/uL Red Blood Count 3.74 L 4.5-5.90 10^6/uL Hemoglobin 8.9 L 13.5-17.5 g/dL Hematocrit 28.8 L 41.0-53.0 % Mean Corpuscular Volume 76.9 L 80.0-100.0 fL Mean Corpuscular Hemoglobin 23.9 L 28.0-32.0 pg Mean Corpuscular Hemoglobin Concent 31.0 L 32.0-36.0 g/dL Red Cell Distribution Width 19.0 H 11.8-14.3 % Platelet Count 266 140-450 10^3/uL Mean Platelet Volume 7.7 6.9-10.8 fL Neutrophils (%) (Auto) 92.3 H 37.0-80.0 % Lymphocytes (%) (Auto) 5.4 L 10.0-50.0 % Monocytes (%) (Auto) 2.3 0.0-12.0 % Eosinophils (%) (Auto) 0.0 0.0-7.0 % Basophils (%) (Auto) 0.0 0.0-2.0 % Neutrophils # (Auto) 10.2 H 1.6-8.6 10 ^3/uL Lymphocytes # (Auto) 0.6 0.4-5.4 10 ^3/uL Monocytes # (Auto) 0.3 0-1.3 10 ^3/uL Eosinophils # (Auto) 0 0-0.8 10 ^3/uL Basophils # (Auto) 0 0-0.2 10 ^3/uL Nucleated Red Blood Cells 0.1 % Platelet Estimate Adequate Red Blood Cell Morphology + Hypochromasia (manual) Moderate Microcytosis Slight Potassium Level 4.7 3.5-5.1 mmol/L Lactate Dehydrogenase 226 120-246 U/L Sodium Level 138 136-145 mmol/L Chloride Level 102 98-107 mmol/L Carbon Dioxide Level 28 20-31 mmol/L Anion Gap 8 5-15 Blood Urea Nitrogen 28 H 9-23 mg/dL Creatinine 0.96 0.700-1.30 mg/dL Glomerular Filtration Rate Calc 84 >90 mL/min BUN/Creatinine Ratio 29.2 H 10.0-20.0 Serum Glucose 117 H 74-106 mg/dL Calcium Level 8.7 8.7-10.4 mg/dL Total Bilirubin 0.2 0.2-1.0 mg/dL Aspartate Amino Transferase (AST) 27 13-40 U/L Alanine Aminotransferase (ALT) 25 7-40 U/L Alkaline Phosphatase 62 46-116 U/L Total Protein 6.7 5.7-8.2 g/dL Albumin 3.2 3.2-4.8 g/dL Hepatitis B Surface Antigen Negative Negative Hepatitis C Antibody Reactive *A Negative Troponin I High Sensitivity 5 </=54 ng/L Lactic Acid Level 1.4 0.4-2.0 mmol/L B-Type Natriuretic Peptide 71.80 0-100 pg/mL Microbiology Date/Time Source Procedure Growth Status 04/12/25 00:40 Nose MRSA Screen - Final Complete 04/11/25 14:08 Blood Blood Culture - Preliminary NO GROWTH AFTER 48 HOURS OF INCUBATION. Resulted Assessment Impression: Acute hypoxic respiratory failure Emphysema, severe Pulmonary fibrosis exacerbation Bronchiectasis Hiatal hernia Chronic obstructive pulmonary disease Anemia Hepatitis C Plan: Supplemental oxygen Titrate to keep O2 sats above 92%. Continue bronchodilators/Pulmicort IV steroids Antibiotics Avoid azithromycin due to bronchiectasis Incentive spirometry Monitor hemoglobin Transfuse if less than 7.0 g/dL. Monitor renal function. Monitor electrolytes. Supplement as necessary. Monitor ins and outs. GI/DVT prophylaxis. Prognosis: Poor given patient's multiple co-morbidities. Rest of plan per hospitalist and other consultants. A total of 76 minutes of clinical care time was spent reviewing the patient record, examining the patient, making a diagnostic and therapeutic plan, discussing this plan with the medical personnel, following up on diagnostic studies and following the patient for clinical stability excluding any and all procedures. At least 50% of this time was spent in direct, [id number] cont act. Thank you, LUPE Moseley, for allowing me to participate in this patient's care. Further recommendations will depend on the patient's clinical course. Please do not hesitate to contact me if you have any questions or concerns. This medical document was created using an electronic medical record system with [employer] dictation system. Although these documentations are being carefully reviewed, there may still be some phonetic and typographical changes. The errors are purely typographical, due to imperfection on the software program, and do not reflect any compromise in the patient's medical care. Plan discussed with: Patient, Other (TOM Aguirre/) Visit Coding Pulmonary Billing Provider: DANIEL RAMEY MD Date of Service if different f: Apr 13, 2025 Common Visit Codes: [id number] INP/OBS CARE (HIGH) DANIEL RAMEY MD Apr 13, 2025 23:31
[2025-04-14] VITALS (15 sets, daily range): BP systolic 101–114; BP diastolic 55–73; PULSE 66–84; RESP 14–20; TEMP 96.8–98.6; O2SAT 93–99
--- NOTE | 2025-04-14 11:02 | DVHPN2 ---
Subjective Patient denies any shortness of breaths this time. Reviewed: Care Plan, H&P, Labs, Medications, Previous Orders Changes from previous H/P or p: No Changes General: Per HPI Eyes: No Pain, No Vision change, No Conjunctivae inflammation, No Eyelid inflammation, No Other, No Redness ENT: No Ear pain, No Ear discharge, No Nose pain, No Nose discharge, No Nose congestion, No Mouth pain, No Mouth swelling, No Throat pain, No Throat swelling, No Other Cardiovascular: No Chest Pain, No Palpitations, No Orthopnea, No Paroxysmal Noc. Dyspnea, No Edema, No Lt Headedness, No Other Respiratory: Cough; No Dry; Shortness of breath; No SOB with excertion, No Wheezing, No Hemoptysis, No Pleuritic Pain, No Sputum, No Other Gastrointestinal: Nausea, Vomiting; No Abdominal Pain, No Diarrhea, No Constipation, No Melena, No Hematochezia, No Other Genitourinary: No Dysuria, No Frequency, No Incontinence, No Hematuria, No Retention, No Other Musculoskeletal: No other, No neck pain, No shoulder pain, No arm pain, No back pain, No hand pain, No leg pain, No foot pain Skin: No Rash, No Lesions, No Jaundice, No Bruising, No Other Objective Vitals Vital Signs Date Time Temp Pulse Resp B/P (MAP) Pulse Ox O2 Delivery O2 Flow Rate FiO2 04/14/25 06:43 69 18 99 04/14/25 06:38 Room Air 04/14/25 06:38 0 21 04/14/25 05:00 97.7 103/55 (71) 97.7 Intake/Output Intake and Output 04/14/25 07:00 Intake Total 1300 ml Output Total 875 ml Balance 425 ml Intake Oral 1300 ml Output Urine Total 875 ml General Appearance: Alert, Oriented X3, Cooperative, No acute distress HEENT: Atraumatic, PERRLA Lungs: Clear to auscultation, Other (Decreased breath sounds bilateral) Cardiovascular: Regular rate, Normal S1, Normal S2 Abdomen: Normal bowel sounds, Soft, No tenderness, No hepatospenomegaly Neuro: Normal gait, Normal speech, Strength at 5/5 X4 ext, Normal tone, S ensation intact, Cranial nerves 3-12 NL Skin: Dry, Intact Psych/Mental Status: Mental status NL, Mood NL Medications Current Medications Medications Dose Ordered Sig/Jerry Route Start Time Stop Time Status Last Admin Dose Admin Albuterol 2.5 mg Q4HPRN PRN NEB 04/11/25 20:45 04/13/25 10:03 2.5 MG Ipratropium [place] 0.5 mg Q4HPRN PRN NEB 04/11/25 20:45 04/13/25 10:03 0.5 MG Famotidine 20 mg Q12HR IV 04/11/25 22:00 04/14/25 10:33 20 MG Methylprednisolone Sodium Succinate 20 mg BID IV 04/11/25 22:00 04/14/25 10:34 20 MG Sodium Chloride 10 ml Q8HR IV 04/11/25 22:00 04/14/25 05:32 10 ML Acetaminophen/ Hydrocodone Bitart 1 tab Q4HP PRN PO 04/11/25 20:45 04/14/25 05:32 1 TAB Docusate Sodium 100 mg BIDPRN PRN PO 04/11/25 20:45 Acetaminophen 650 mg Q6HP PRN PO 04/11/25 20:45 Levofloxacin 50 ml @ 50 mls/hr DAILY IV 04/13/25 10:00 04/14/25 10:33 50 MLS/HR Enoxaparin Sodium 40 mg DAILY SC 04/13/25 10:00 04/14/25 10:34 40 MG Albuterol 2.5 mg Q6HWA NEB 04/13/25 18:00 04/14/25 06:38 2.5 MG Ipratropium [place] 0.5 mg Q6HWA NEB 04/13/25 18:00 04/14/25 06:37 0.5 MG Budesonide 0.5 mg BID NEB 04/13/25 22:00 04/14/25 06:38 0.5 MG Laboratory Results Laboratory Tests 04/12/25 06:04 04/13/25 05:36 Microbiology Microbiology Date/Time Source Procedure Growth Status 04/12/25 00:40 Nose MRSA Screen - Final Complete 04/11/25 14:08 Blood Blood Culture - Preliminary NO GROWTH AFTER 48 HOURS OF INCUBATION. Resulted Labs and/or images reviewed: Labs reviewed by me, Image(s) reviewed by me Assessment/Plan Assessment/Plan Impression: -acute hypoxic respiratory failure -ruled out pulmonary embolism -pulmonary fibrosis -rule out lung CA -microcytic, hypochromic anemia Plan: Events: Discussed plan of care with the patient. Apparently, he states that he was from a residential care facility either in [place] or [place]. He states they placed him in ovarian syndrome to this hospital. -pulmonology consultation : Discussed case with Dr. White -bronchodilators q.6 hours -add Pulmicort -continue Solu-Medrol -social service consultation for discharge planning. Total time spent with patient discussing and formulating plan of care: 35 minutes. This medical document was created using an electronic medical record system with [employer] dictation system. Although this document has been carefully reviewed, there may still be some phonetic and typographical errors. These areas are purely typographical due to imperfections of the software programs, and do not reflect any compromise in the patient's medical care. Plan discussed with: Patient, Other (RN) My Orders Orders - JOSUE OTOOLE NP Procedure Category Date Status Time Albuterol Medneb PHA 04/13/25 In Process (Ventolin Medneb) 18:00 Ipratropium Medneb PHA 04/13/25 In Process (Atrovent Medneb) 18:00 Budesonide PHA 04/13/25 In Process (Inhalation) 22:00 *Consult CONS 04/13/25 Transmitted 19:21 Date of Service: Apr 14, 2025 Billing Provider: JOSUE OTOOLE NP Common Visit Codes: [id number] INP/OBS CARE(HIGH) JOSUE OTOOLE NP Apr 14, 2025 11:02
--- NOTE | 2025-04-14 23:45 | DVHPN2 ---
Subjective DOS: 04/14/2025 Patient seen and examined at bedside. Breathing comfortably on room air. Overnight events reviewed. Reviewed: Care Plan, H&P, Labs, Medications, Previous Orders Changes from previous H/P or p: No Changes General: Per HPI Eyes: No Pain, No Vision change, No Conjunctivae inflammation, No Eyelid inflammation, No Other, No Redness ENT: No Ear pain, No Ear discharge, No Nose pain, No Nose discharge, No Nose congestion, No Mouth pain, No Mouth swelling, No Throat pain, No Throat swelling, No Other Cardiovascular: No Chest Pain, No Palpitations, No Orthopnea, No Paroxysmal Noc. Dyspnea, No Edema, No Lt Headedness, No Other Respiratory: Cough, Shortness of breath Gastrointestinal: Nausea, Vomiting Genitourinary: No Dysuria, No Frequency, No Incontinence, No Hematuria, No Retention, No Other Musculoskeletal: No other, No neck pain, No shoulder pain, No arm pain, No back pain, No hand pain, No leg pain, No foot pain Skin: No Rash, No Lesions, No Jaundice, No Bruising, No Other Objective Vitals Vital Signs Date Time Temp Pulse Resp B/P (MAP) Pulse Ox O2 Delivery O2 Flow Rate FiO2 04/14/25 21:00 98.6 71 16 105/68 (80) 97 98.6 04/14/25 20:00 Room Air* 0 21 Intake/Output Intake and Output 04/14/25 07:00 Intake Total 1300 ml Output Total 875 ml Balance 425 ml Intake Oral 1300 ml Output Urine Total 875 ml Exam Gen.: Patient lying in bed in no apparent distress. Breathing on room air. Head: Normocephalic, atraumatic. Eyes: EOMI/PERRLA. Ears: Normal hearing. Normal anatomy. Neck/trachea: Trachea midline, supple. Nose: Normal external anatomy. Mouth: Moist mucous membranes. Chest: Decreased air entry bilaterally. No wheezing or rhonchi. Cardiovascular: Positive S1, positive S2. Regular rate and rhythm. Abdomen: Positive bowel sounds in all 4 quadrants. Soft, non-tender, non- distended. : Deferred. Rectal: Deferred. Skin: Warm, dry. Intact. Extremities: 2+ radial pulses bilaterally. No lower extremity edema. Neuro: Awake, alert, oriented x3. No gross motor or sensory deficits. Cranial nerves II through XII intact. Gait not assessed. General Appearance: Alert, Oriented X3, Cooperative, No acute distress HEENT: Atraumatic, PERRLA Lungs: Clear to auscultation, Other Cardiovascular: Regular rate, Normal S1, Normal S2 Abdomen: Normal bowel sounds, Soft, No tenderness, No hepatospenomegaly Neuro: Normal gait, Normal speech, Strength at 5/5 X4 ext, Normal tone, S ensation intact, Cranial nerves 3-12 NL Skin: Dry, Intact Psych/Mental Status: Mental status NL, Mood NL Medications Current Medications Medications Dose Ordered Sig/Jerry Route Start Time Stop Time Status Last Admin Dose Admin Albuterol 2.5 mg Q4HPRN PRN NEB 04/11/25 20:45 04/13/25 10:03 2.5 MG Ipratropium Tornillo 0.5 mg Q4HPRN PRN NEB 04/11/25 20:45 04/13/25 10:03 0.5 MG Famotidine 20 mg Q12HR IV 04/11/25 22:00 04/14/25 21:23 20 MG Methylprednisolone Sodium Succinate 20 mg BID IV 04/11/25 22:00 04/14/25 21:16 20 MG Sodium Chloride 10 ml Q8HR IV 04/11/25 22:00 04/14/25 22:29 10 ML Acetaminophen/ Hydrocodone Bitart 1 tab Q4HP PRN PO 04/11/25 20:45 04/14/25 21:23 1 TAB Docusate Sodium 100 mg BIDPRN PRN PO 04/11/25 20:45 Acetaminophen 650 mg Q6HP PRN PO 04/11/25 20:45 Levofloxacin 50 ml @ 50 mls/hr DAILY IV 04/13/25 10:00 04/14/25 10:33 50 MLS/HR Enoxaparin Sodium 40 mg DAILY SC 04/13/25 10:00 04/14/25 10:34 40 MG Albuterol 2.5 mg Q6HWA NEB 04/13/25 18:00 04/14/25 19:10 2.5 MG Ipratropium Tornillo 0.5 mg Q6HWA NEB 04/13/25 18:00 04/14/25 19:10 0.5 MG Budesonide 0.5 mg BID NEB 04/13/25 22:00 04/14/25 19:10 0.5 MG Laboratory Results Laboratory Tests 04/12/25 06:04 04/13/25 05:36 Microbiology Microbiology Date/Time Source Procedure Growth Status 04/12/25 00:40 Nose MRSA Screen - Final Complete 04/11/25 14:08 Blood Blood Culture - Preliminary NO GROWTH AFTER 72 HOURS OF INCUBATION. Resulted Assessment/Plan Assessment/Plan Impression: Acute hypoxic respiratory failure Emphysema, severe Pulmonary fibrosis exacerbation Bronchiectasis Hiatal hernia Chronic obstructive pulmonary disease Anemia Hepatitis C Events: Breathing on room air Supplemental oxygen PRN Continue bronchodilators/Pulmicort Continue steroids Continue antibiotics Avoid azithromycin due to bronchiectasis. Incentive spirometry CT angio reviewed,shows no pulmonary embolism. Severe centrilobular emphysema. Fibrosis in lower lungs. Interlobular septal thickening with more nodular thickening along the major fissures. Subacute sternal fracture Diffuse soft tissue thickening in anterior and lateral chest mccloud - correlation for malignancy recommended. See report for full details. Labs and imaging reviewed. Rest of plan as noted below. Plan: Supplemental oxygen Titrate to keep O2 sats above 92%. Continue bronchodilators/Pulmicort IV steroids Antibiotics Avoid azithromycin due to bronchiectasis Incentive spirometry Monitor hemoglobin Transfuse if less than 7.0 g/dL. Monitor renal function. Monitor electrolytes. Supplement as necessary. Monitor ins and outs. GI/DVT prophylaxis. Prognosis: Poor given patient's multiple co-morbidities. Rest of plan per hospitalist and other consultants. A total of 51 minutes of clinical care time was spent reviewing the patient record, examining the patient, making a diagnostic and therapeutic plan, discussing this plan with the medical personnel, following up on diagnostic studies and following the patient for clinical stability excluding any and all procedures. At least 50% of this time was spent in direct, [id number] contact. Thank you, LUPE Moseley, for allowing me to participate in this patient's care. Further recommendations will depend on the patient's clinical course. Please do not hesitate to contact me if you have any questions or concerns. This medical document was created using an electronic medical record system with [employer] system. Although these documentations are being carefully reviewed, there may still be some phonetic and typographical changes. The errors are purely typographical, due to imperfection on the software program, and do not reflect any compromise in the patient's medical care. Plan discussed with: Patient, Other (TOM Dinh) Visit Coding Pulmonary Billing Provider: DANIEL RAMEY MD Date of Service if different f: Apr 14, 2025 Common Visit Codes: [id number] INP/OBS CARE(HIGH) DANIEL RAMEY MD Apr 14, 2025 23:45
[2025-04-15] VITALS (12 sets, daily range): BP systolic 106–119; BP diastolic 55–77; PULSE 40–85; RESP 16–20; TEMP 36.9; O2SAT 95–100
--- NOTE | 2025-04-15 14:26 | DVHDS2 ---
Discharge Summary Date of Admission Apr 12, 2025 at 01:21 Date of Discharge: Apr 15, 2025 Admitting Diagnosis Acute on chronic respiratory failure Labs/Diagnostic Data: Laboratory Results Test 04/13/25 05:36 04/12/25 06:04 04/11/25 17:06 04/11/25 14:08 White Blood Count 11.0 10^3/uL (4.4-10.8) Red Blood Count 3.74 10^6/uL (4.5-5.90) Hemoglobin 8.9 g/dL (13.5-17.5) Hematocrit 28.8 % (41.0-53.0) Mean Corpuscular Volume 76.9 fL (80.0-100.0) Mean Corpuscular Hemoglobin 23.9 pg (28.0-32.0) Mean Corpuscular Hemoglobin Concent 31.0 g/dL (32.0-36.0) Red Cell Distribution Width 19.0 % (11.8-14.3) Platelet Count 266 10^3/uL (140-450) Mean Platelet Volume 7.7 fL (6.9-10.8) Neutrophils (%) (Auto) 92.3 % (37.0-80.0) Lymphocytes (%) (Auto) 5.4 % (10.0-50.0) Monocytes (%) (Auto) 2.3 % (0.0-12.0) Eosinophils (%) (Auto) 0.0 % (0.0-7.0) Basophils (%) (Auto) 0.0 % (0.0-2.0) Neutrophils # (Auto) 10.2 10 ^3/uL (1.6-8.6) Lymphocytes # (Auto) 0.6 10 ^3/uL (0.4-5.4) Monocytes # (Auto) 0.3 10 ^3/uL (0-1.3) Eosinophils # (Auto) 0 10 ^3/uL (0-0.8) Basophils # (Auto) 0 10 ^3/uL (0-0.2) Nucleated Red Blood Cells 0.1 % Platelet Estimate Adequate Red Blood Cell Morphology + Hypochromasia (manual) Moderate Microcytosis Slight Potassium Level 4.7 mmol/L (3.5-5.1) Lactate Dehydrogenase 226 U/L (120-246) Sodium Level 138 mmol/L (136-145) Chloride Level 102 mmol/L (98-107) Carbon Dioxide Level 28 mmol/L (20-31) Anion Gap 8 (5-15) Blood Urea Nitrogen 28 mg/dL (9-23) Creatinine 0.96 mg/dL (0.700-1.30) Glomerular Filtration Rate Calc 84 mL/min (>90) BUN/Creatinine Ratio 29.2 (10.0-20.0) Serum Glucose 117 mg/dL (74-106) Calcium Level 8.7 mg/dL (8.7-10.4) Total Bilirubin 0.2 mg/dL (0.2-1.0) Aspartate Amino Transferase (AST) 27 U/L (13-40) Alanine Aminotransferase (ALT) 25 U/L (7-40) Alkaline Phosphatase 62 U/L (46-116) Total Protein 6.7 g/dL (5.7-8.2) Albumin 3.2 g/dL (3.2-4.8) Hepatitis B Surface Antigen Negative (Negative) Hepatitis C Antibody Reactive (Negative) Troponin I High Sensitivity 5 ng/L (</=54) Lactic Acid Level 1.4 mmol/L (0.4-2.0) B-Type Natriuretic Peptide 71.80 pg/mL (0-100) Other Laboratory Tests 04/13/25 05:36 04/12/25 06:04 Brief Hx & Hospital Course: History of Present Illness The patient is a 74-year-old male who denies past medical history presented to [facility] ED with complaint of shortness of breaths. Patient reports that he has been experiencing difficulty breathing associated with cough, nausea, vomiting, diarrhea, fever, chills, and dyspnea for several weeks. Patient was seen and evaluated in the ED, laboratory data shows WBC 4.9, hemoglobin 10.8, hematocrit 34.5, platelets 382, sodium 140, potassium 4.2, BUN 29, creatinine 1.00, GFR 80, glucose 94, calcium 8.9, BNP 71.80, troponin 5, lactic acid 1.4, blood pressure 104/70, heart rate 72, temperature 97.9 F, O2 saturation 99% on oxygen. Chest x-ray revealing bilateral interstitial and airspace opacity which may reflect pulmonary congestion or fibrosis. Please see medication orders section in the computer. On my assessment, patient denied chest pain, no dizziness, headache, diaphoresis, no diarrhea, nausea, vomiting, fever, no chills. Patient was admitted for further evaluation and medical management. Course of hospitalization: Patient was placed on bronchodilators, O2 supplementation. Patient has CT angiogram of the chest which was negative for pulmonary embolism, but did present with severe pulmonary fibrosis. Patient states he is on no medications at home. Pulmonology consultation was obtained with recommendations reviewed. Patient has been weaned off of oxygen is requesting to be discharged home. Social service consultation has been obtained for discharge planning. Apparently the patient is wishing to be transferred back to the [facility] he [facility] from. Patient will be discharged from the hospital in his instructed to follow up with his PCP at next available appointment. Patient was agreeable with discharge plan. All questions answered. Physical examination General: Alert and Oriented x3. No acute distress. Well-nourished. Eyes: EOMI. Anicteric. HENT: Moist mucous membranes. Lungs: Clear to auscultation bilaterally. No accessory muscle use. Cardiovascular: Regular rate and rhythm. No murmur. No JVD. Abdomen: Soft, non-tender and non-distended. No palpable masses. Extremities: No edema. Non-tender. Skin: No rashes or lesions. Warm. Neurologic: No focal neurological deficits. CN II-XII grossly intact, but not individually tested. Psychiatric: Cooperative. Appropriate mood and affect. Total time spent with patient discussing and formulating plan of care: 35 minutes. This medical document was created using an electronic medical record system with [employer] dictation system. Although this document has been carefully reviewed, there may still be some phonetic and typographical errors. These areas are purely typographical due to imperfections of the software programs, and do not reflect any compromise in the patient's medical care. Consults/Reason for consult Pulmonology: Pulmonary fibrosis Condition at Discharge: Poor Final Diagnosis/Problems List Acute on chronic hypoxic respiratory failure -acute hypoxic respiratory failure -ruled out pulmonary embolism -pulmonary fibrosis -ruled out lung CA -microcytic, hypochromic anemia Discharge Disposition: Home Discharge Instruct/Medications Diet: Regular Activity: No Restrictions, As Tolerated Follow Up/Referral: Follow up with PCP in 1-2 weeks Medications: No new home medications 36 Discharge Statement: "Patient was advised to return to the ER or call 911 if any headaches, dizziness, shortness of breath, chest pain, abdominal pain, bleeding, fevers, or worsening of medical condition. Patient was counseled about treatment plan, medications, possible side effects, patientverbalized understanding. All questions were answered to the best of my ability. This discharge took greater then 30 minutes in planning, reviewing documentation, counseling the patient, and discussing with other team members." ASSESSMENT ASSESSMENT Assessment Acute on chronic hypoxic respiratory failure Date of Service: Apr 15, 2025 Billing Provider: JOSUE OTOOLE NP Common Visit Codes: 19841-GKP/OBS DISCH DAY >30min JOSUE OTOOLE NP Apr 15, 2025 14:25
--- NOTE | 2025-04-15 23:53 | DVHPN2 ---
Subjective DOS: 04/15/2025 Patient seen and examined at bedside. Breathing comfortably on room air. Overnight events reviewed. Reviewed: Care Plan, H&P, Labs, Medications, Previous Orders Changes from previous H/P or p: No Changes General: Per HPI Eyes: No Pain, No Vision change, No Conjunctivae inflammation, No Eyelid inflammation, No Other, No Redness ENT: No Ear pain, No Ear discharge, No Nose pain, No Nose discharge, No Nose congestion, No Mouth pain, No Mouth swelling, No Throat pain, No Throat swelling, No Other Cardiovascular: No Chest Pain, No Palpitations, No Orthopnea, No Paroxysmal Noc. Dyspnea, No Edema, No Lt Headedness, No Other Respiratory: Cough, Shortness of breath Gastrointestinal: Nausea, Vomiting Genitourinary: No Dysuria, No Frequency, No Incontinence, No Hematuria, No Retention, No Other Musculoskeletal: No other, No neck pain, No shoulder pain, No arm pain, No back pain, No hand pain, No leg pain, No foot pain Skin: No Rash, No Lesions, No Jaundice, No Bruising, No Other Objective Vitals Vital Signs Date Time Temp Pulse Resp B/P (MAP) Pulse Ox O2 Delivery O2 Flow Rate FiO2 04/15/25 15:13 36.9 85 18 98 04/15/25 14:01 Room Air* 0 21 04/15/25 13:00 119/62 (81) Intake/Output Intake and Output 04/15/25 07:00 Intake Total 946 ml Output Total 720 ml Balance 226 ml Intake Oral 896 ml IV Total 50 ml Output Urine Total 720 ml # Bowel Movements 2 Exam Gen.: Patient lying in bed in no apparent distress. Breathing on room air. Head: Normocephalic, atraumatic. Eyes: EOMI/PERRLA. Ears: Normal hearing. Normal anatomy. Neck/trachea: Trachea midline, supple. Nose: Normal external anatomy. Mouth: Moist mucous membranes. Chest: Decreased air entry bilaterally. No wheezing or rhonchi. Cardiovascular: Positive S1, positive S2. Regular rate and rhythm. Abdomen: Positive bowel sounds in all 4 quadrants. Soft, non-tender, non- distended. : Deferred. Rectal: Deferred. Skin: Warm, dry. Intact. Extremities: 2+ radial pulses bilaterally. No lower extremity edema. Neuro: Awake, alert, oriented x3. No gross motor or sensory deficits. Cranial nerves II through XII intact. Gait not assessed. General Appearance: Alert, Oriented X3, Cooperative, No acute distress HEENT: Atraumatic, PERRLA Lungs: Clear to auscultation, Other Cardiovascular: Regular rate, Normal S1, Normal S2 Abdomen: Normal bowel sounds, Soft, No tenderness, No hepatospenomegaly Neuro: Normal gait, Normal speech, Strength at 5/5 X4 ext, Normal tone, S ensation intact, Cranial nerves 3-12 NL Skin: Dry, Intact Psych/Mental Status: Mental status NL, Mood NL Laboratory Results Laboratory Tests 04/12/25 06:04 04/13/25 05:36 Microbiology Microbiology Date/Time Source Procedure Growth Status 04/12/25 00:40 Nose MRSA Screen - Final Complete 04/11/25 14:08 Blood Blood Culture - Preliminary NO GROWTH AFTER 72 HOURS OF INCUBATION. Resulted Assessment/Plan Assessment/Plan Impression: Acute hypoxic respiratory failure Emphysema, severe Pulmonary fibrosis exacerbation Bronchiectasis Hiatal hernia Chronic obstructive pulmonary disease Anemia Hepatitis C Events: Breathing on room air Supplemental oxygen PRN No overnight events. Patient feels better Continue bronchodilators/Pulmicort Continue steroids Continue antibiotics Avoid azithromycin due to bronchiectasis. Incentive spirometry CT angio reviewed,shows no pulmonary embolism. Severe centrilobular emphysema. Fibrosis in lower lungs. Interlobular septal thickening with more nodular thickening along the major fissures. Subacute sternal fracture Diffuse soft tissue thickening in anterior and lateral chest mccloud - correlation for malignancy recommended. See report for full details. Patient is stable for discharge from the pulmonary standpoint. Labs and imaging reviewed. Rest of plan as noted below. Plan: Supplemental oxygen Titrate to keep O2 sats above 92%. Continue bronchodilators/Pulmicort IV steroids Antibiotics Avoid azithromycin due to bronchiectasis Incentive spirometry Monitor hemoglobin Transfuse if less than 7.0 g/dL. Monitor renal function. Monitor electrolytes. Supplement as necessary. Monitor ins and outs. GI/DVT prophylaxis. Prognosis: Poor given patient's multiple co-morbidities. Rest of plan per hospitalist and other consultants. A total of 51 minutes of clinical care time was spent reviewing the patient record, examining the patient, making a diagnostic and therapeutic plan, discussing this plan with the medical personnel, following up on diagnostic studies and following the patient for clinical stability excluding any and all procedures. At least 50% of this time was spent in direct, [id number] contact. Thank you, LUPE Moseley, for allowing me to participate in this patient's care. Further recommendations will depend on the patient's clinical course. Please do not hesitate to contact me if you have any questions or concerns. This medical document was created using an electronic medical record system with [employer] dictation system. Although these documentations are being carefully reviewed, there may still be some phonetic and typographical changes. The errors are purely typographical, due to imperfection on the software program, and do not reflect any compromise in the patient's medical care. Plan discussed with: Patient, Other (TOM Hyatt) Visit Coding Pulmonary Billing Provider: DANIEL RAMEY MD Date of Service if different f: Apr 15, 2025 Common Visit Codes: [id number] INP/OBS CARE(HIGH) DANIEL RAMEY MD Apr 15, 2025 23:53
== END 2025-04-15 17:30 | disposition home or self-care (01) | DRG 189 ==
LOC: ER 13:39 → OVERFLOW 22:08 → UNDOADMIN 22:08 → OVERFLOW 23:59 → TELE-WESTW 23:59 → OVERFLOW 04-12 01:21 → TELE-WESTW 04-12 01:21
PROVIDERS: ADMIT Nurse Practitioner Acute Care; ATTEND Nurse Practitioner Acute Care
DX: J96.21 Acute and chronic respiratory failure with hypoxia (principal); J47.0 Bronchiectasis with acute lower respiratory infection; J84.10 Pulmonary fibrosis, unspecified; J44.0 Chronic obstructive pulmonary disease with (acute) lower respiratory infection; B19.20 Unspecified viral hepatitis C without hepatic coma; D50.9 Iron deficiency anemia, unspecified; J43.9 Emphysema, unspecified; K44.9 Diaphragmatic hernia without obstruction or gangrene; B18.2 Chronic viral hepatitis C; J43.2 Centrilobular emphysema; Z74.01 Bed confinement status; Z79.899 Other long term (current) drug therapy
CPT/HCPCS: 36415; 71045; 71275; 80048; 80053; 83605; 83615; 83880; 84132; 84484; 85025; 86803; 87040; 87081; 87340; 93005; 93306; 94640; 96374; 99291; G0378; J1956; J3490